=== PATIENT | female | born 1970 | race Caucasian/White ===

== ENCOUNTER → 2018-11-23 | Outpatient (CLI) | payer OTHER ==
[~2018-11-23] MED LIST: LIDOCAINE 1% MDV 20ML VIAL As Ordered ONE
--- NOTE | 2018-11-23 13:20 | REP ---
POST BIOPSY MAMMOGRAM LEFT BREAST: ML and CC views of the left breast performed status post sterotactic biopsy of clustered microcalcifications laterally. A metallic clip is seen at the site of the biopsy and multiple calcifications are no longer visualized. Electronically Signed by Reuben Matamoros MD 11/23/2018 11:04 P
--- NOTE | 2018-11-23 13:22 | REP ---
SPECIMEN RADIOGRAPH: A specimen radiograph is performed following sterotactic biopsy of clustered microcalcifications in the lateral left breast. There are multiple calcifications in the specimens, predominantly within specimen #2. Electronically Signed by Reuben Matamoros MD 11/23/2018 11:04 P
--- NOTE | 2018-11-23 20:36 | REP ---
STEREOTACTIC LEFT BREAST BIOPSY The procedure was performed under the direct supervision of Dr. Matamoros The patient has a history of new an increase groups of microcalcifications in the three to four o'clock position for half of the left breast seen on a previous mammogram dated 11/01/2018 from [facility]. The risks and benefits of the procedure were explained to the patient and informed consent was obtained. A lateral medial approach was utilized. The calcifications were localized using stereotactic mammographic guidance. 1% Xylocaine was used as a local anesthetic. An 8 gauge, suction assisted Mammotome needle was inserted and 6 core biopsy samples were obtained. Specimen radiograph demonstrates the presence of calcifications to be within the specimen. A marker clip was placed at the biopsy site. The patient tolerated the procedure well and there were no immediate complications. After the appropriate amount of monitored convalescence, the patient was discharged from the department. Reviewed by JUSTIN Oquendo 11/23/2018 02:38 P Electronically Signed by Reuben Matamoros MD 11/23/2018 08:27 P
== END ==
LOC: M RADPRO 10:46
PROVIDERS: ATTEND Surgery
DX: N60.19 Diffuse cystic mastopathy of unspecified breast (principal)